=== PATIENT | female | born 1990 | race African-American/Black ===

== ENCOUNTER → 2016-12-11 | Day surgery (SDC) | payer OTHER ==
[~2016-12-11] MED LIST: ACETAMINOPHEN 1000 MG/100 ML VIAL IV ONE; BUPIVACAINE/EPINEPHRINE 0.25% 50 ML VIAL ONE; LACTATED RINGER'S 1000 ML INJ 1,000 ML ONE; LIDOCAINE 1%/EPINEPHrine 1:100,000 SOLN 30 ML VIAL ONE; MEPERIDINE HCL 50 MG/ML VIAL ONE; MIDAZOLAM HCL 2 MG/2 ML VIAL ONE; ONDANSETRON HCL 4 MG/2 ML VIAL IV PUSH ONE; PROPOFOL 200 MG/20 ML AMP IV ONE; ceFAZolin INJ 1,000 MG VIAL ONE
--- NOTE | 2016-12-11 11:05 | TN ---
cc: JUSTYN DOWNEY M.D. DATE OF SURGERY: 12/11/2016 PREOPERATIVE DIAGNOSIS Significant laxity of the posterior torso status post significant weight loss. PROCEDURE Posterior torsoplasty. SURGEON Justyn Downey MD ANESTHESIA LMA general. 60 ccs of 1% lidocaine with epinephrine. ESTIMATED BLOOD LOSS Minimal. COMPLICATIONS None. PROCEDURE Proper consent was obtained and properly mares were done the day before surgery and the morning of surgery. The patient was taken to the operating room where after achieving a level of LMA anesthesia, utilizing tulip draping system Betadine was utilized to sterilize the torso. Proceeded and performed an excision on the lateral site covering mostly the upper torso and including the anterior lateral chest and all posterior. Anchors were done utilizing 0-Ethibond suture down to the deep fascia, 2-0 Monocryl suture for the Allan's fascia, dermis and subcu. The Dermabond Prineo was utilized for the skin and the contralateral side was approached exactly in the same manner as previously dictated. Overall, the patient tolerated the procedure well. She was awakened, extubated in the operating room and transferred back to postanesthesia care unit in stable condition. No complications were appreciated. The patient tolerated the procedure fairly well. MD MIRLANDE Hill/KEVIN /10:20 AM /11:00 AM
== END | disposition home or self-care (01) ==
LOC: ESDC 06:08
PROVIDERS: ATTEND Plastic Surgery
DX: Z41.1 Encounter for cosmetic surgery (principal)
CPT/HCPCS: 00300; 15839; J0131; J0690; J2175; J2250; J2405; J3010; J7120